=== PATIENT | female | born 1960 | race Caucasian/White ===

== ENCOUNTER → 2017-07-03 | Outpatient (CLI) | payer OTHER | LOC: FIMAGING 12:39 | PROVIDERS: ATTEND Obstetrics & Gynecology | DX: Z12.31 Encounter for screening mammogram for malignant neoplasm of breast (principal) | CPT/HCPCS: G0202 ==

== ENCOUNTER 2018-05-20 08:07 | Emergency (ER) | payer OTHER ==
[2018-05-20] MEDS ORDERED: NS 500 ML IV ONE (08:25)
[2018-05-20] MEDS ORDERED: ASPIRIN 81 MG CHEWABLE TAB PO ONE (08:25)
--- NOTE | 2018-05-20 08:32 | EDPHY ---
H & P Stated Complaint: pain under l breast x 2 days Time Seen by Provider: 05/20/18 08:21 HPI/ROS: CHIEF COMPLAINT: Chest pain HISTORY OF PRESENT ILLNESS: The patient is a 58-year-old female who comes to the emergency department complaining of left-sided lateral rib/chest pain. She noticed it the last 2 nights while she was sleeping on her left side. It woke her up from sleep. She states that if she rolls to her right side or gets up and moves around it seems to resolve. She also tried taking Tums last night which may have helped. She has a family history of her father having heart attack in his 40s and is concerned about this. No shortness of breath. No diaphoresis. No nausea or GI symptoms. It does not radiate. It is not worse with deep inspiration or movement. She has not had any leg pain or swelling. She does not smoke. No recent travel. She has never had this happened before. She does not have any history of cardiac disease. She is leaving to go to [place] tomorrow and wants to get "checked out". Severity: Moderate Modifying factors: Rolling over, moving around improves her symptoms REVIEW OF SYSTEMS: Constitutional: denies: chills, fever, recent illness, recent injury EENTM: denies: blurred vision, double vision, nose congestion Respiratory: denies: cough, shortness of breath Cardiac: See HPI denies: irregular heart rate, lightheadedness, palpitations Gastrointestinal/Abdominal: denies: abdominal pain, diarrhea, nausea, vomiting, blood streaked stools Genitourinary: denies: dysuria, frequency, hematuria, pain Musculoskeletal: denies: joint pain, muscle pain Skin: denies: lesions, rash, jaundice, bruising Neurological: denies: headache, numbness, paresthesia, tingling, dizziness, weakness Hematologic/Lymphatic: denies: blood clots, easy bleeding, easy bruising Immunologic/allergic: denies: HIV/AIDS, transplant 10 systems reviewed and negative except as noted EXAM: GENERAL: Well-appearing, well-nourished and in no acute distress. HEAD: Atraumatic, normocephalic. EYES: Pupils equal round and reactive to light, extraocular movements intact, sclera anicteric, conjunctiva are normal. ENT: TMs normal, nares patent, oropharynx clear without exudates. Moist mucous membranes. NECK: Normal range of motion, supple without lymphadenopathy or JVD. LUNGS: Breath sounds clear to auscultation bilaterally and equal. No wheezes rales or rhonchi. HEART: Regular rate and rhythm without murmurs, rubs or gallops. ABDOMEN: Soft, nontender, normoactive bowel sounds. No guarding, no rebound. No masses appreciated. BACK: No CVA tenderness, no spinal tenderness, step-offs or deformities EXTREMITIES: Normal range of motion, no pitting or edema. No clubbing or cyanosis. NEUROLOGICAL: Cranial nerves II through XII grossly intact. Normal speech, normal gait. 5/5 strength, normal movement in all extremities, normal sensation , normal reflexes PSYCH: Normal mood, normal affect. SKIN: Warm, dry, normal turgor, no visible rashes or lesions. Source: Patient Exam Limitations: No limitations - Personal History Current Tetanus Diphtheria and Acellular Pertussis (TDAP): Yes - Medical/Surgical History Hx Asthma: No Hx Chronic Respiratory Disease: No Hx Diabetes: No Hx Cardiac Disease: No Hx Renal Disease: No Hx Cirrhosis: No Hx Alcoholism: No Hx HIV/AIDS: No Hx Splenectomy or Spleen Trauma: No Other PMH: denies - Family History Significant Family History: No pertinent family hx - Social History Smoking Status: Current every day smoker Alcohol Use: Sober Drug Use: None Constitutional: Initial Vital Signs Temperature (C) 36.7 C 05/20/18 08:08 Heart Rate 88 05/20/18 08:08 Respiratory Rate 18 05/20/18 08:08 Blood Pressure 161/87 H 05/20/18 08:08 O2 Sat (%) 97 05/20/18 08:08 O2 Delivery Mode Room Air Allergies/Adverse Reactions: No Known Allergies Allergy (Unverified 05/20/18 08:08) Home Medications: Medication Instructions Recorded Crestor 05/20/18 Zetia 05/20/18 Medical Decision Making - Diagnostics EKG Interpretation: An EKG obtained and was read and documented in trace view. Please see trace view for full reading and report. Sinus rhythm, no acute ischemic changes Imaging Results: Imaging Impressions Chest X-Ray 05/20/18 08:26 Impression: No active cardiopulmonary disease seen. Imaging: Discussed imaging studies w/ place change roof bolter Radiologist ED Course/Re-evaluation: 9:26 a.m. we had a long discussion about cardiac risk. Patient's lab work and imaging is reassuring. We engage in shared decision making and discussed repeat troponin verses admission and stress test. I believe that she is very low risk clinically. She states that she had a CT angiogram scan 9 years ago and had a 0 calcium score. This is also reassuring. She states that she primarily came in because of her family history but thinks that this is more likely gas. We discussed follow-up within the next few days although she is leaving on a trip for [place]. She will follow up when she returns. She does not wish to stay. Differential Diagnosis: Partial list of the Differential diagnosis considered include but were not limited to; gas, peptic ulcer disease, anxiety, pleurisy and although unlikely based on the history and physical exam, I also considered PE, acute coronary disease, dissection, aneurysm. I discussed these differential diagnoses and the plan with the patient as well as the usual and expected course. The patient understands that the diagnosis is provisional and that in medicine we are not always correct and that further workup is often warranted. Usual and customary warnings were given. All of the patient's questions were answered. The patient was instructed to return to the emergency department should the symptoms at all worsen or return, otherwise to followup with the physician as we discussed. - Data Points Laboratory Results: Laboratory Results 05/20/18 08:25 05/20/18 08:25 05/20/18 05/20/18 05/20/18 08:25 08:25 08:25 WBC 6.57 10^3/uL 10^3/uL (3.80-9.50) RBC 5.02 10^6/uL 10^6/uL (4.18-5.33) Hgb 15.0 g/dL g/dL (12.6-16.3) Hct 43.7 % % (38.0-47.0) MCV 87.1 fL fL (81.5-99.8) MCH 29.9 pg pg (27.9-34.1) MCHC 34.3 g/dL g/dL (32.4-36.7) RDW 12.7 % % (11.5-15.2) Plt Count 280 10^3/uL 10^3/uL (150-400) MPV 10.0 fL fL (8.7-11.7) Neut % (Auto) 67.5 % % (39.3-74.2) Lymph % (Auto) 22.8 % % (15.0-45.0) Mcculloch % (Auto) 7.6 % % (4.5-13.0) Eos % (Auto) 1.7 % % (0.6-7.6) Baso % (Auto) 0.2 % L % (0.3-1.7) Nucleat RBC Rel Count 0.0 % % (0.0-0.2) Absolute Neuts (auto) 4.44 10^3/uL 10^3/uL (1.70-6.50) Absolute Lymphs (auto) 1.50 10^3/uL 10^3/uL (1.00-3.00) Absolute Monos (auto) 0.50 10^3/uL 10^3/uL (0.30-0.80) Absolute Eos (auto) 0.11 10^3/uL 10^3/uL (0.03-0.40) Absolute Basos (auto) 0.01 10^3/uL L 10^3/uL (0.02-0.10) Absolute Nucleated RBC 0.00 10^3/uL 10^3/uL (0-0.01) Immature Gran % 0.2 % % (0.0-1.1) Immature Gran # 0.01 10^3/uL 10^3/uL (0.00-0.10) PT 12.0 SEC SEC (12.0-15.0) INR 0.87 (0.83-1.16) APTT 23.5 SEC SEC (23.0-38.0) D-Dimer 0.30 ug/mLFEU ug/mLFEU (0.00-0.50) Sodium 140 mEq/L mEq/L (135-145) Potassium 4.3 mEq/L mEq/L (3.3-5.0) Chloride 105 mEq/L mEq/L (97-110) Carbon Dioxide 25 mEq/l mEq/l (22-31) Anion Gap 10 mEq/L mEq/L (8-16) BUN 14 mg/dL mg/dL (7-23) Creatinine 0.7 mg/dL mg/dL (0.6-1.0) Estimated GFR > 60 Glucose 116 mg/dL H mg/dL (70-100) Calcium 10.1 mg/dL mg/dL (8.5-10.4) Total Bilirubin 0.7 mg/dL mg/dL (0.1-1.4) Conjugated Bilirubin 0.1 mg/dL mg/dL (0.0-0.5) Unconjugated Bilirubin 0.6 mg/dL mg/dL (0.0-1.1) AST 42 IU/L IU/L (14-46) ALT 45 IU/L IU/L (9-52) Alkaline Phosphatase 50 IU/L IU/L (38-126) POC Troponin I Total Protein 7.1 g/dL g/dL (6.3-8.2) Albumin 4.4 g/dL g/dL (3.5-5.0) Lipase 85 IU/L IU/L (23-300) 05/20/18 08:23 WBC RBC Hgb Hct MCV MCH MCHC RDW Plt Count MPV Neut % (Auto) Lymph % (Auto) Mcculloch % (Auto) Eos % (Auto) Baso % (Auto) Nucleat RBC Rel Count Absolute Neuts (auto) Absolute Lymphs (auto) Absolute Monos (auto) Absolute Eos (auto) Absolute Basos (auto) Absolute Nucleated RBC Immature Gran % Immature Gran # PT INR APTT D-Dimer Sodium Potassium Chloride Carbon Dioxide Anion Gap BUN Creatinine Estimated GFR Glucose Calcium Total Bilirubin Conjugated Bilirubin Unconjugated Bilirubin AST ALT Alkaline Phosphatase POC Troponin I 0.01 ng/mL ng/mL (0.00-0.08) Total Protein Albumin Lipase Medications Given: Discontinued Medications Aspirin (Aspirin) 324 mg PO EDNOW ONE Stop: 05/20/18 08:26 Last Admin: 05/20/18 08:52 Dose: 324 mg Sodium Chloride (Ns) 500 mls @ 0 mls/hr IV EDNOW ONE; Wide Open PRN Reason: Protocol Stop: 05/20/18 08:26 Last Admin: 05/20/18 08:53 Dose: 500 mls Point of Care Test Results: Chemistry 05/20/18 08:23 POC Troponin I 0.01 ng/mL ng/mL (0.00-0.08) Departure - Departure Disposition: Home, Routine, Self-Care Clinical Impression: Chest pain Qualifiers: Chest pain type: unspecified Qualified Code(s): R07.9 - Chest pain, unspecified Condition: Fair Instructions: Chest Pain (ED) Referrals: LORRI CAR [Primary Care Provider] - As per Instructions Anisha Alonzo MD [Medical Doctor] - As per Instructions
[2018-05-20 08:33] LABS: PLATELET COUNT 280 10^3/uL (150-400)
--- NOTE | 2018-05-20 08:33 | CPEKG ---
Test Reason : OPEN Blood Pressure : / mmHG Vent. Rate : 083 BPM Atrial Rate : 083 BPM P-R Int : 155 ms QRS Dur : 088 ms QT Int : 374 ms P-R-T Axes : 041 058 046 degrees QTc Int : 440 ms Sinus rhythm Confirmed by Charles Cartwright ([id number]) on 05/20/2018 8:32:58 AM Referred By: Confirmed By:Charles Cartwright
[2018-05-20 08:44] LABS: INR 0.87 (0.83-1.16)
[2018-05-20 09:51] VITALS: BP 138/95
== END 2018-05-20 09:50 | disposition home or self-care (01) ==
DX: R07.9 Chest pain, unspecified (principal); E86.9 Volume depletion, unspecified; Z82.49 Family history of ischemic heart disease and other diseases of the circulatory system
CPT/HCPCS: 84484-PO